=== PATIENT | male | born 1985 | race African-American/Black ===

== ENCOUNTER 2021-01-20 13:12 | Emergency (ER) | payer OTHER ==
[~2021-01-20] VITALS: Ht 177.8 cm; Wt 68.0 kg
[2021-01-20 13:34] VITALS: BP 116/86
== END 2021-01-20 15:21 | disposition home or self-care (01) ==
LOC: ER 13:12
PROVIDERS: Physician Assistant
DX: R51.9 Headache, unspecified (principal); Z20.822 Contact with and (suspected) exposure to COVID-19